=== PATIENT | female | born 1995 | race African-American/Black ===

== ENCOUNTER 2019-06-20 06:40 | Emergency (ER) | payer OTHER ==
[2019-06-20] MEDS ORDERED: IBUPROFEN PO ONE (07:47)
[2019-06-20] MEDS ORDERED: NORCO 10/325 PO ONE (07:47)
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
[2019-06-20 10:18] VITALS: BP 153/91
== END 2019-06-20 10:18 | disposition home or self-care (01) ==
LOC: ED 06:40
DX: S13.4XXA Sprain of ligaments of cervical spine, initial encounter (principal); S39.012A Strain of muscle, fascia and tendon of lower back, initial encounter; M06.9 Rheumatoid arthritis, unspecified; M79.7 Fibromyalgia; Z88.2 Allergy status to sulfonamides; Z88.5 Allergy status to narcotic agent; Z79.1 Long term (current) use of non-steroidal anti-inflammatories (NSAID); V89.2XXA Person injured in unspecified motor-vehicle accident, traffic, initial encounter; Y93.89 Activity, other specified; Y92.488 Other paved roadways as the place of occurrence of the external cause; Y99.8 Other external cause status
CPT/HCPCS: 72040; 72100; 99284